=== PATIENT | female | born 1995 | race Caucasian/White ===

== ENCOUNTER 2017-08-12 16:41 | Emergency (ER) | payer OTHER ==
[~2017-08-12] VITALS: Ht 170.2 cm; Wt 84.8 kg
[2017-08-12 16:52] VITALS: BP 115/69
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
== END 2017-08-12 17:33 | disposition home or self-care (01) ==
LOC: ER 16:41
DX: M25.562 Pain in left knee (principal); Z88.0 Allergy status to penicillin; X50.9XXA Other and unspecified overexertion or strenuous movements or postures, initial encounter; Y93.01 Activity, walking, marching and hiking; Y99.8 Other external cause status; Y92.813 Airplane as the place of occurrence of the external cause
CPT/HCPCS: 99281

== ENCOUNTER 2020-06-13 08:58 | Emergency (ER) | payer BC, OTHER ==
[~2020-06-13] VITALS: Ht 170.2 cm; Wt 113.6 kg
[2020-06-13 09:05] VITALS: BP 151/101
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
[2020-06-13] MEDS ORDERED: KETOROLAC 60 MG/2 ML VIAL. IM ONE (09:30)
[2020-06-13] MEDS ORDERED: ORPHENADRINE CITRATE 60 MG/2 ML VIAL. IM ONE (09:30)
--- NOTE | 2020-06-13 09:37 | RAD ---
EXAM: Lumbar spine, 3 views. HISTORY: Radiculopathy. COMPARISON: None. FINDINGS: 3 views of the lumbar spine are obtained. There is straightening of lumbar lordosis. There is no listhesis. The vertebral bodies are normal in height and the disc spaces are preserved. IMPRESSION: No acute osseous finding. Electronically signed by: Analisa Wilson MD (06/13/2020 9:35 AM) [id number]
[2020-06-13] MEDS ORDERED: CYCL5TAB PO (09:52)
[2020-06-13] MEDS ORDERED: MELO15TA6 PO (09:52)
== END 2020-06-13 10:05 | disposition home or self-care (01) ==
LOC: ER 08:58
DX: O90.89 Other complications of the puerperium, not elsewhere classified (principal); M54.5 Low back pain; Z20.2 Contact with and (suspected) exposure to infections with a predominantly sexual mode of transmission; Z98.890 Other specified postprocedural states; Z88.0 Allergy status to penicillin
CPT/HCPCS: 72100; 96372; 99284; J1885; J2360